=== PATIENT | male | born 1995 | race Caucasian/White ===

== ENCOUNTER 2022-05-22 19:04 | Inpatient (IN) | payer MEDICAID, OTHER ==
--- NOTE | 2022-05-22 19:39 | ED ---
Psych HPI - General Chief Complaint: Psychiatric Symptoms Stated Complaint: Mental Health Time Seen by Provider: 05/22/22 19:19 Source: patient, RN notes reviewed Mode of arrival: ambulatory - History of Present Illness Initial Comments: Patient is a pleasant 26-year-old male presenting to the emergency room with reports of worsening depression ongoing for approximately 1 month with now plans of hurting himself. He denies any specific plan as to how he is going to hurt himself. Anxiety including occasional chest pain and headache but denies any at this time. He is not currently taking any medications for psychiatric conditions. He denies any homicidal thoughts, hallucinations or delusions. He denies any other complaints or concerns at this time including any shortness of breath, abdominal pain, nausea, vomiting, lethargy, altered mental status, weakness, fevers or chills. He has no significant past medical history and does not take any medications on a regular basis. - Related Data Previous Rx's Medication Instructions Recorded FLUoxetine HCL [PROzac] 30 mg PO DAILY 30 Days cap 05/27/22 diphenhydrAMINE [Benadryl] 50 mg PO HS 30 Days cap 05/27/22 Allergies Allergy/AdvReac Type Severity Reaction Status Date / Time No Known Allergies Allergy Verified 05/24/22 20:43 Review of Systems ROS Statement: Those systems with pertinent positive or pertinent negative responses have been documented in the HPI. ROS Other: All systems not noted in ROS Statement are negative. Past Medical History Past Medical History: No Reported History History of Any Multi-Drug Resistant Organisms: None Reported Past Surgical History: No Surgical Hx Reported Past Psychological History: No Psychological Hx Reported Smoking Status: Current every day smoker Past Alcohol Use History: Occasional Past Drug Use History: None Reported - Past Family History familiy Additional Family Medical History / Comment(s): no reported cardiac history General Exam Limitations: no limitations General appearance: alert, in no apparent distress Head exam: Present: atraumatic, normocephalic, normal inspection Eye exam: Present: normal appearance, PERRL, EOMI. Absent: scleral icterus, conjunctival injection, periorbital swelling ENT exam: Present: normal exam, mucous membranes moist Neck exam: Present: normal inspection. Absent: lymphadenopathy Respiratory exam: Present: normal lung sounds bilaterally (Going in). Absent: respiratory distress, wheezes, rales, rhonchi, stridor Cardiovascular Exam: Present: regular rate, normal rhythm, normal heart sounds. Absent: systolic murmur, diastolic murmur, rubs, gallop, clicks GI/Abdominal exam: Present: soft, normal bowel sounds. Absent: distended, tenderness, guarding, rebound, rigid Rectal exam: Present: deferred Extremities exam: Present: normal inspection, full ROM, normal capillary refill. Absent: tenderness, pedal edema, joint swelling, calf tenderness Back exam: Present: normal inspection Neurological exam: Present: alert, oriented X3, CN II-XII intact Psychiatric exam: Present: normal affect, normal mood Skin exam: Present: warm, dry, intact, normal color. Absent: rash Course Vital Signs 05/22/22 05/23/22 05/23/22 19:14 11:17 14:37 Temperature 97 F L Pulse Rate 71 60 68 Pulse Rate [ Right] Respiratory 18 16 16 Rate Blood Pressure 107/67 110/60 120/66 Blood Pressure [Right Arm] O2 Sat by Pulse 96 99 99 Oximetry 05/23/22 05/23/22 05/24/22 21:05 22:38 06:05 Temperature Pulse Rate 80 68 53 L Pulse Rate [ Right] Respiratory 16 16 12 Rate Blood Pressure 118/76 110/66 134/82 Blood Pressure [Right Arm] O2 Sat by Pulse 98 98 100 Oximetry 05/24/22 19:52 Temperature 98.2 F Pulse Rate Pulse Rate [ 51 L Right] Respiratory 18 Rate Blood Pressure Blood Pressure 121/78 [Right Arm] O2 Sat by Pulse 97 Oximetry Medical Decision Making - Medical Decision Making 26-year-old male presenting to the emergency room with depression and anxiety and thoughts of self-harm without any specific suicidal plan. No hallucinations or delusions or homicidal thoughts. No indication for diagnostic imaging or laboratory studies with the exception of breath alcohol test and drug screen Covid screen if needed for psychiatric admission. Will clear medical standpoint for evaluation by EPS. Patient evaluated by EPS and will be admitted voluntarily to mental health unit. No bed availability at this time. Will continue to maintain safety and suicide precautions while in the emergency room. 50 maintained until patch available on psychiatric unit. Will discharge patient for transfer to inpatient psychiatric. Case discussed with Dr. López. - Lab Data Result diagrams: 05/23/22 22:41 05/23/22 22:41 Lab Results 05/22/22 05/23/22 05/23/22 Range/Units 23:10 22:41 22:41 WBC 12.7 H (3.8-10.6) k/uL RBC 4.88 (4.30-5.90) m/uL Hgb 15.0 (13.0-17.5) gm/dL Hct 45.3 (39.0-53.0) % MCV 92.7 (80.0-100.0) fL MCH 30.6 (25.0-35.0) pg MCHC 33.0 (31.0-37.0) g/dL RDW 12.8 (11.5-15.5) % Plt Count 180 (150-450) k/uL MPV 9.4 Neutrophils % 64 % Lymphocytes % 25 % Monocytes % 5 % Eosinophils % 3 % Basophils % 1 % Neutrophils # 8.1 H (1.3-7.7) k/uL Lymphocytes # 3.1 (1.0-4.8) k/uL Monocytes # 0.7 (0-1.0) k/uL Eosinophils # 0.4 (0-0.7) k/uL Basophils # 0.1 (0-0.2) k/uL Sodium (137-145) mmol/L Potassium (3.5-5.1) mmol/L Chloride (98-107) mmol/L Carbon Dioxide (22-30) mmol/L Anion Gap mmol/L BUN (9-20) mg/dL Creatinine (0.66-1.25) mg/dL Est GFR (CKD-EPI)AfAm (>60 ml/min/1.73 sqM) Est GFR (CKD-EPI)NonAf (>60 ml/min/1.73 sqM) Glucose (74-99) mg/dL Estimated Ave Glu mg/dL Hemoglobin A1c (0.0-6.0) % Calcium (8.4-10.2) mg/dL Total Bilirubin (0.2-1.3) mg/dL AST (17-59) U/L ALT (4-49) U/L Alkaline Phosphatase (38-126) U/L Total Protein (6.3-8.2) g/dL Albumin (3.5-5.0) g/dL Triglycerides (0.00-149.00) mg/dL Cholesterol (0.00-200.00) mg/dL LDL Cholesterol, Calc (0.0-131.0) mg/dL VLDL Cholesterol, Calc (5.00-40.00) mg/dL HDL Cholesterol (40.00-60.00) mg/dL Cholesterol/HDL Ratio Ratio TSH (0.465-4.680) mIU/L Urine Color Yellow Urine Appearance Clear (Clear) Urine pH 7.5 (5.0-8.0) Ur Specific [place] 1.022 (1.001-1.035) Urine Protein Negative (Negative) Urine Glucose (UA) Negative (Negative) Urine Ketones Negative (Negative) Urine Blood Negative (Negative) Urine Nitrite Negative (Negative) Urine Bilirubin Negative (Negative) Urine Urobilinogen 2.0 (<2.0) mg/dL Ur Leukocyte Esterase Negative (Negative) Urine Opiates Screen Not Detected (NotDetected) Ur Oxycodone Screen Not Detected (NotDetected) Urine Methadone Screen Not Detected (NotDetected) Ur Propoxyphene Screen Not Detected (NotDetected) Ur Barbiturates Screen Not Detected (NotDetected) U Tricyclic Antidepress Not Detected (NotDetected) Ur Phencyclidine Scrn Not Detected (NotDetected) Ur Amphetamines Screen Detected H (NotDetected) U Methamphetamines Scrn Detected H (NotDetected) U Benzodiazepines Scrn Not Detected (NotDetected) Urine Cocaine Screen Not Detected (NotDetected) U Marijuana (THC) Screen Detected H (NotDetected) Coronavirus (PCR) (Not Detectd) 05/23/22 05/23/22 05/23/22 Range/Units 22:41 22:41 22:41 WBC (3.8-10.6) k/uL RBC (4.30-5.90) m/uL Hgb (13.0-17.5) gm/dL Hct (39.0-53.0) % MCV (80.0-100.0) fL MCH (25.0-35.0) pg MCHC (31.0-37.0) g/dL RDW (11.5-15.5) % Plt Count (150-450) k/uL MPV Neutrophils % % Lymphocytes % % Monocytes % % Eosinophils % % Basophils % % Neutrophils # (1.3-7.7) k/uL Lymphocytes # (1.0-4.8) k/uL Monocytes # (0-1.0) k/uL Eosinophils # (0-0.7) k/uL Basophils # (0-0.2) k/uL Sodium 138 (137-145) mmol/L Potassium 4.3 (3.5-5.1) mmol/L Chloride 106 (98-107) mmol/L Carbon Dioxide 28 (22-30) mmol/L Anion Gap 4 mmol/L BUN 12 (9-20) mg/dL Creatinine 0.93 (0.66-1.25) mg/dL Est GFR (CKD-EPI)AfAm >90 (>60 ml/min/1.73 sqM) Est GFR (CKD-EPI)NonAf >90 (>60 ml/min/1.73 sqM) Glucose 91 (74-99) mg/dL Estimated Ave Glu mg/dL 115 Hemoglobin A1c 5.6 (0.0-6.0) % Calcium 9.3 (8.4-10.2) mg/dL Total Bilirubin 0.4 (0.2-1.3) mg/dL AST 24 (17-59) U/L ALT 19 (4-49) U/L Alkaline Phosphatase 63 (38-126) U/L Total Protein 6.9 (6.3-8.2) g/dL Albumin 4.6 (3.5-5.0) g/dL Triglycerides (0.00-149.00) mg/dL Cholesterol (0.00-200.00) mg/dL LDL Cholesterol, Calc (0.0-131.0) mg/dL VLDL Cholesterol, Calc (5.00-40.00) mg/dL HDL Cholesterol (40.00-60.00) mg/dL Cholesterol/HDL Ratio Ratio TSH (0.465-4.680) mIU/L Urine Color Urine Appearance (Clear) Urine pH (5.0-8.0) Ur Specific [place] (1.001-1.035) Urine Protein (Negative) Urine Glucose (UA) (Negative) Urine Ketones (Negative) Urine Blood (Negative) Urine Nitrite (Negative) Urine Bilirubin (Negative) Urine Urobilinogen (<2.0) mg/dL Ur Leukocyte Esterase (Negative) Urine Opiates Screen (NotDetected) Ur Oxycodone Screen (NotDetected) Urine Methadone Screen (NotDetected) Ur Propoxyphene Screen (NotDetected) Ur Barbiturates Screen (NotDetected) U Tricyclic Antidepress (NotDetected) Ur Phencyclidine Scrn (NotDetected) Ur Amphetamines Screen (NotDetected) U Methamphetamines Scrn (NotDetected) U Benzodiazepines Scrn (NotDetected) Urine Cocaine Screen (NotDetected) U Marijuana (THC) Screen (NotDetected) Coronavirus (PCR) Not Detected (Not Detectd) 05/23/22 Range/Units 22:41 WBC (3.8-10.6) k/uL RBC (4.30-5.90) m/uL Hgb (13.0-17.5) gm/dL Hct (39.0-53.0) % MCV (80.0-100.0) fL MCH (25.0-35.0) pg MCHC (31.0-37.0) g/dL RDW (11.5-15.5) % Plt Count (150-450) k/uL MPV Neutrophils % % Lymphocytes % % Monocytes % % Eosinophils % % Basophils % % Neutrophils # (1.3-7.7) k/uL Lymphocytes # (1.0-4.8) k/uL Monocytes # (0-1.0) k/uL Eosinophils # (0-0.7) k/uL Basophils # (0-0.2) k/uL Sodium (137-145) mmol/L Potassium (3.5-5.1) mmol/L Chloride (98-107) mmol/L Carbon Dioxide (22-30) mmol/L Anion Gap mmol/L BUN (9-20) mg/dL Creatinine (0.66-1.25) mg/dL Est GFR (CKD-EPI)AfAm (>60 ml/min/1.73 sqM) Est GFR (CKD-EPI)NonAf (>60 ml/min/1.73 sqM) Glucose (74-99) mg/dL Estimated Ave Glu mg/dL Hemoglobin A1c (0.0-6.0) % Calcium (8.4-10.2) mg/dL Total Bilirubin (0.2-1.3) mg/dL AST (17-59) U/L ALT (4-49) U/L Alkaline Phosphatase (38-126) U/L Total Protein (6.3-8.2) g/dL Albumin (3.5-5.0) g/dL Triglycerides 145.00 (0.00-149.00) mg/dL Cholesterol 113.00 (0.00-200.00) mg/dL LDL Cholesterol, Calc 44.4 (0.0-131.0) mg/dL VLDL Cholesterol, Calc 29.00 (5.00-40.00) mg/dL HDL Cholesterol 39.60 L (40.00-60.00) mg/dL Cholesterol/HDL Ratio 2.85 Ratio TSH 0.494 (0.465-4.680) mIU/L Urine Color Urine Appearance (Clear) Urine pH (5.0-8.0) Ur Specific [place] (1.001-1.035) Urine Protein (Negative) Urine Glucose (UA) (Negative) Urine Ketones (Negative) Urine Blood (Negative) Urine Nitrite (Negative) Urine Bilirubin (Negative) Urine Urobilinogen (<2.0) mg/dL Ur Leukocyte Esterase (Negative) Urine Opiates Screen (NotDetected) Ur Oxycodone Screen (NotDetected) Urine Methadone Screen (NotDetected) Ur Propoxyphene Screen (NotDetected) Ur Barbiturates Screen (NotDetected) U Tricyclic Antidepress (NotDetected) Ur Phencyclidine Scrn (NotDetected) Ur Amphetamines Screen (NotDetected) U Methamphetamines Scrn (NotDetected) U Benzodiazepines Scrn (NotDetected) Urine Cocaine Screen (NotDetected) U Marijuana (THC) Screen (NotDetected) Coronavirus (PCR) (Not Detectd) Disposition Clinical Impression: Depression Disposition: TRANSFER TO PSYCH HOSP/UNIT Condition: Stable Is patient prescribed a controlled substance at d/c from ED?: No Time of Disposition: 20:05
[2022-05-23 00:21] LABS: Amphetamine Screen,Urine Detected (NotDetected); Barbiturate Screen,Urine Not Detected (NotDetected); Benzodiazepines Screen,Urine Not Detected (NotDetected); Cocaine Screen,Urine Not Detected (NotDetected); Methadone Screen, Urine Not Detected (NotDetected); Opiate Screen,Urine Not Detected (NotDetected); Oxycodone Screen, Urine Not Detected (NotDetected); Phencyclidine Screen,Urine Not Detected (NotDetected); Tricyclic Antidepressant,Urine Not Detected (NotDetected); Urn Cannabinoid Scrn Detected (NotDetected)
[2022-05-23 23:06] LABS: Appearance,Urine Clear (Clear); Basophils # (A) 0.1 k/uL (0-0.2); Basophils % (A) 1 %; Bilirubin,Urine Negative (Negative); Blood,Urine Negative (Negative); Color,Urine Yellow; Eosinophils # (A) 0.4 k/uL (0-0.7); Eosinophils % (A) 3 %; Glucose,Urine (UA) Negative (Negative); HCT 45.3 % (39.0-53.0); Ketones,Urine Negative (Negative); Leukocyte Esterase,Urine Negative (Negative); Lymphocytes # (A) 3.1 k/uL (1.0-4.8); Lymphocytes % (A) 25 %; MCH 30.6 pg (25.0-35.0); MCV 92.7 fL (80.0-100.0); Mean Platelet Volume 9.4; Monocytes # (A) 0.7 k/uL (0-1.0); Monocytes % (A) 5 %; Neutrophils # (A) 8.1 k/uL (1.3-7.7); Neutrophils % (A) 64 %; Nitrite,Urine Negative (Negative); PH, Urine 7.5 (5.0-8.0); Platelet Count 180 k/uL (150-450); Protein,Urine Negative (Negative); RBC 4.88 m/uL (4.30-5.90); RDW 12.8 % (11.5-15.5); Specific Gravity,Urine 1.022 (1.001-1.035); WBC 12.7 k/uL (3.8-10.6)
[2022-05-23 23:16] LABS: ALT 19 U/L (4-49); AST 24 U/L (17-59); African American GFR (CKD) >90 (>60 ml/min/1.73 sqM); Albumin 4.6 g/dL (3.5-5.0); Alkaline Phosphatase 63 U/L (38-126); Anion Gap 4 mmol/L; Blood Urea Nitrogen 12 mg/dL (9-20); Calcium 9.3 mg/dL (8.4-10.2); Carbon Dioxide 28 mmol/L (22-30); Chloride 106 mmol/L (98-107); Glucose 91 mg/dL (74-99); Non-African American GFR(CKD) >90 (>60 ml/min/1.73 sqM); Potassium 4.3 mmol/L (3.5-5.1); Sodium 138 mmol/L (137-145); Total Bilirubin 0.4 mg/dL (0.2-1.3); Total Protein 6.9 g/dL (6.3-8.2)
[2022-05-24] MEDS ORDERED: MAGNESIUM HYDROXIDE 2,400 MG/10 ML CUP PO PRN (20:12)
[2022-05-24] MEDS ORDERED: LORazepam 1 MG TAB PO PRN (20:12)
[2022-05-24] MEDS ORDERED: ACETAMINOPHEN TAB 325 MG TAB PO PRN (20:12)
[2022-05-24] MEDS ORDERED: MAG HYDROX/AL HYDROX/SIMETH 30 ML CUP PO PRN (20:12)
[2022-05-24] MEDS ORDERED: LORazepam 1 MG/0.5 ML VIAL IM PRN (20:14)
--- NOTE | 2022-05-25 04:07 | P.MDCNMH ---
History of Present Illness H&P Date: 05/25/22 Chief Complaint: suicidal ideation 26 year old male with no significant past medical history patient comes in due to feeling depressed and suicidal ideation he denies any URI symptoms, chest pain trouble breathing, nausea or vomiting , abd pain , changes in bowel or urinary habits. denies any focal neuro deficits e admits to tobacco smoking, using meth , but denies daily drinking Review of Systems Pertinent positives as noted in HPI. All other systems were reviewed and are negative Past Medical History Past Medical History: No Reported History History of Any Multi-Drug Resistant Organisms: None Reported Past Surgical History: No Surgical Hx Reported Past Psychological History: No Psychological Hx Reported Smoking Status: Current every day smoker Past Alcohol Use History: Occasional Past Drug Use History: None Reported - Past Family History familiy Additional Family Medical History / Comment(s): no reported cardiac history Medications and Allergies Home Medications Medication Instructions Recorded Confirmed Type No Known Home Medications 05/23/22 05/24/22 History Allergies Allergy/AdvReac Type Severity Reaction Status Date / Time No Known Allergies Allergy Verified 05/24/22 20:43 Physical Exam Vitals: Vital Signs Temp Pulse Pulse Resp BP BP Pulse Ox 05/24/22 20:33 97.6 F 60 14 134/81 100 05/24/22 06:05 53 L 12 134/82 100 Intake and Output 05/24/22 05/24/22 05/25/22 14:59 22:59 06:59 Other: Weight 86.183 kg Constitutional: No acute distress, conversant, pleasant Eyes: Anicteric sclerae, moist conjunctiva, Pupils equal round reactive to light ENMT: NC/AT Oropharynx clear, no erythema, or exudates Neck: Supple, no masses, or JVD No carotid bruits No thyromegaly Lungs: Clear to auscultation Clear to percussion Normal respiratory effort, no accessory muscle use Cardiovascular: Heart regular in rate and rhythm, No murmurs, gallops, or rubs No peripheral edema Abdominal: Soft Nontender, no guarding, rebound or rigidity Abdomen moving with respiration Normoactive bowel sounds No hepatomegaly, No splenomegaly No palpable mass No abdominal wall hernia noted Skin: Normal temperature, tone, texture, turgor No induration No subcutaneous nodules No rash, lesions No ulcers Extremities: No digital cyanosis No clubbing Pedal pulses intact and symmetrical Radial pulses intact and symmetrical No calf tenderness Psychiatric: Alert and oriented to person, place and time Neuro Muscles Strength 5/5 in all 4 extremities Sensation to light touch grossly present throughout Cranial nerves II-XII grossly intact Lymphatics: no palpable cervical or supraclavicular lymph nodes Cranial Nerve Examination - Cranial Nerves Cranial Nerve II- Optic: Intact Cranial Nerve III- Oculomotor: Intact Cranial Nerve IV- Trochlear: Intact Cranial Nerve V- Trigeminal: Intact Cranial Nerve - Abducens: Intact Cranial Nerve VII- Facial: Intact Cranial Nerve VIII- Auditory: Intact Cranial Nerve IX- Glossopharyngeal: Intact Cranial Nerve X- Vagus: Intact Cranial Nerve XI- Accessory: Intact Cranial Nerve XII- Hypoglossal: Intact Results CBC & Chem 7: 05/23/22 22:41 05/23/22 22:41 Assessment and Plan Assessment: depression and suicidal ideation management per psych tobacco smoking polysubstance abuse counseled to quit nicotine replacement therapy offered follow up labs thank you for your consult
[2022-05-25 09:56] LABS: Chol/HDL Ratio 2.85 Ratio; LDL Cholesterol,Calculated 44.4 mg/dL (0.0-131.0)
[2022-05-25] MEDS ORDERED: FLUoxetine HCL 20 MG CAP PO STA (10:27)
--- NOTE | 2022-05-25 11:37 | P.HP ---
Psychiatric H&P - . H&P Date: 05/25/22 History & Physical: Allergies Allergy/AdvReac Type Severity Reaction Status Date / Time No Known Allergies Allergy Verified 05/24/22 20:43 Vital Signs Temp 97.6 F 05/24/22 20:33 Pulse 60 05/24/22 20:33 Resp 14 05/24/22 20:33 BP 134/81 05/24/22 20:33 Pulse Ox 100 05/24/22 20:33 FiO2 Intake & Output 05/24/22 05/25/22 05/25/22 18:59 06:59 18:59 Weight 86.183 kg Laboratory Last Values WBC 12.7 k/uL (3.8-10.6) H 05/23/22 22:41 RBC 4.88 m/uL (4.30-5.90) 05/23/22 22:41 Hgb 15.0 gm/dL (13.0-17.5) 05/23/22 22:41 Hct 45.3 % (39.0-53.0) 05/23/22 22:41 MCV 92.7 fL (80.0-100.0) 05/23/22 22:41 MCH 30.6 pg (25.0-35.0) 05/23/22 22:41 MCHC 33.0 g/dL (31.0-37.0) 05/23/22 22:41 RDW 12.8 % (11.5-15.5) 05/23/22 22:41 Plt Count 180 k/uL (150-450) 05/23/22 22:41 MPV 9.4 05/23/22 22:41 Neutrophils % 64 % 05/23/22 22:41 Lymphocytes % 25 % 05/23/22 22:41 Monocytes % 5 % 05/23/22 22:41 Eosinophils % 3 % 05/23/22 22:41 Basophils % 1 % 05/23/22 22:41 Neutrophils # 8.1 k/uL (1.3-7.7) H 05/23/22 22:41 Lymphocytes # 3.1 k/uL (1.0-4.8) 05/23/22 22:41 Monocytes # 0.7 k/uL (0-1.0) 05/23/22 22:41 Eosinophils # 0.4 k/uL (0-0.7) 05/23/22 22:41 Basophils # 0.1 k/uL (0-0.2) 05/23/22 22:41 Sodium 138 mmol/L (137-145) 05/23/22 22:41 Potassium 4.3 mmol/L (3.5-5.1) 05/23/22 22:41 Chloride 106 mmol/L (98-107) 05/23/22 22:41 Carbon Dioxide 28 mmol/L (22-30) 05/23/22 22:41 Anion Gap 4 mmol/L 05/23/22 22:41 BUN 12 mg/dL (9-20) 05/23/22 22:41 Creatinine 0.93 mg/dL (0.66-1.25) 05/23/22 22:41 Est GFR (CKD-EPI)AfAm >90 (>60 ml/min/1.73 sqM) 05/23/22 22:41 Est GFR (CKD-EPI)NonAf >90 (>60 ml/min/1.73 sqM) 05/23/22 22:41 Glucose 91 mg/dL (74-99) 05/23/22 22:[address] Glu mg/dL 115 05/23/22 22:41 Hemoglobin A1c 5.6 % (0.0-6.0) 05/23/22 22:41 Calcium 9.3 mg/dL (8.4-10.2) 05/23/22 22:41 Total Bilirubin 0.4 mg/dL (0.2-1.3) 05/23/22 22:41 AST 24 U/L (17-59) 05/23/22 22:41 ALT 19 U/L (4-49) 05/23/22 22:41 Alkaline Phosphatase 63 U/L (38-126) 05/23/22 22:41 Total Protein 6.9 g/dL (6.3-8.2) 05/23/22 22:41 Albumin 4.6 g/dL (3.5-5.0) 05/23/22 22:41 Triglycerides 145.00 mg/dL (0.00-149.00) 05/23/22 22:41 Cholesterol 113.00 mg/dL (0.00-200.00) 05/23/22 22:41 LDL Cholesterol, Calc 44.4 mg/dL (0.0-131.0) 05/23/22 22: VLDL Cholesterol, Calc 29.00 mg/dL (5.00-40.00) 05/23/22 22: HDL Cholesterol 39.60 mg/dL (40.00-60.00) L 05/23/22 22:41 Cholesterol/HDL Ratio 2.85 Ratio 05/23/22 22: TSH 0.494 mIU/L (0.465-4.680) 05/23/22 22:41 Urine Color Yellow 05/23/22 22:41 Urine Appearance Clear (Clear) 05/23/22 22:41 Urine pH 7.5 (5.0-8.0) 05/23/22 22:41 Ur Specific [place] 1.022 (1.001-1.035) 05/23/22 22:41 Urine Protein Negative (Negative) 05/23/22 22:41 Urine Glucose (UA) Negative (Negative) 05/23/22 22:41 Urine Ketones Negative (Negative) 05/23/22 22:41 Urine Blood Negative (Negative) 05/23/22 22:41 Urine Nitrite Negative (Negative) 05/23/22 22:41 Urine Bilirubin Negative (Negative) 05/23/22 22:41 Urine Urobilinogen 2.0 mg/dL (<2.0) 05/23/22 22:41 Ur Leukocyte Esterase Negative (Negative) 05/23/22 22:41 Urine Opiates Screen Not Detected (NotDetected) 05/22/22 23:10 Ur Oxycodone Screen Not Detected (NotDetected) 05/22/22 23:10 Urine Methadone Screen Not Detected (NotDetected) 05/22/22 23:10 Ur Propoxyphene Screen Not Detected (NotDetected) 05/22/22 23:10 Ur Barbiturates Screen Not Detected (NotDetected) 05/22/22 23:10 U Tricyclic Antidepress Not Detected (NotDetected) 05/22/22 23:10 Ur Phencyclidine Scrn Not Detected (NotDetected) 05/22/22 23:10 Ur Amphetamines Screen Detected (NotDetected) H 05/22/22 23:10 U Methamphetamines Scrn Detected (NotDetected) H 05/22/22 23:10 U Benzodiazepines Scrn Not Detected (NotDetected) 05/22/22 23:10 Urine Cocaine Screen Not Detected (NotDetected) 05/22/22 23:10 U Marijuana (THC) Screen Detected (NotDetected) H 05/22/22 23:10 Coronavirus (PCR) Not Detected (Not Detectd) 05/23/22 22:41 05/25/22 11:36 IDENTIFYING DATA: Patient is a single, unemployed, 26-year-old male with no significant psychiatric history who presents to the hospital for depression and suicidal ideation. HPI: Patient presented to the hospital on 05/22/2022, brought into the hospital on his own volition for psychiatric evaluation for increased depression and suicidal ideation. The patient reports that he has been feeling increasingly depressed over the past 6-8 months however over the past week his depression was significantly worse. He reports that a few days prior to his presentation in [facility], the patient overdosed on a random assortment of pills. He reports that he was intoxicated at the time. He states that he was convinced by the mother of his daughter to seek psychiatric care. Upon evaluation on the psychiatric unit, the patient reports that he has been feeling very depressed. He endorses significant symptoms of depression including decreased sleep, anhedonia, hopelessness, helplessness, and suicidal ideation. In regards to other mood symptoms, the patient is denying any significant history of bipolar symptoms. He reports no history of increased goal-directed activity, grandiosity, or periods of excessive energy. Patient also denies any significant history of psychosis. He reports no auditory hallucinations, visual hallucinations, paranoia, or any delusions. In regards to acute stressors, the patient reports that he recently moved back from [place]. He is currently unemployed and has been staying with his mother for the past week. He identifies this as a stressor. He also reports that he's been feeling increasingly lonely and wishes he could spend more time with his daughter Jennifer. PAST PSYCHIATRIC HISTORY: Patient states that he has never had any psychiatric diagnosis or care in the past. Patient denies being on any psychiatric medications. Patient denies any previous psychiatric hospitalizations. Patient denies any psychiatric outpatient follow-up. And has one prior attempt at suicide a few days days prior to this admission. PMH: Past Medical History: No Reported History History of Any Multi-Drug Resistant Organisms: None Reported Past Surgical History: No Surgical Hx Reported Past Psychological History: No Psychological Hx Reported Smoking Status: Current every day smoker Past Alcohol Use History: Occasional Past Drug Use History: None Reported ALLERGIES: NO KNOWN DRUG ALLERGIES CHEMICAL DEPENDENCY HISTORY:. Patient reports he smokes one pack per day of tobacco. He reports that he uses marijuana every day. He reports that he drinks "on occasion." He does report a history of methamphetamine and cocaine abuse. He states that he last used methamphetamine a few days prior to this admission. He also reports that he last used cocaine years ago. He states that he uses methamphetamines a few times per year. FAMILY PSYCHIATRIC/SUBSTANCE USE HISTORY: No reported family history of psychiatric illness. He does report that his mother and father both engaged in heavy drug and alcohol use. No reported family history of suicides. SOCIAL HISTORY: Patient was born and raised in [place], [place]. He is single, never , but has a 6-year-old daughter. He has his GED. He reports no moravian affiliation. He denies any history of legal issues. 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 MENTAL STATUS EXAM: General Appearance: Patient appears to be stated age is alert, directable, and attempts to cooperate. Patient appears to have slightly disheveled hygiene and grooming. Behavior: Patient is seated without any agitated behavior. Tearful. Speech: Patient's speech is fluent and nonpressured. Nonspontaneous and monotone. Mood/Affect: Patient reports their mood is depressed, affect is congruent and tearful. Blunted. Suicidality/Homicidality: Patient is currently denying any suicidal or homicidal ideation. Perceptions: Patient denies any visual hallucinations and denies any auditory hallucinations Though content/process: There is no evidence of any delusional thought content and thought process is linear and goal-directed. Memory and concentration: AOX3, grossly intact for the purposes of this session. Can spell "WORLD" backwards Judgment and insight: Fair STRENGTHS/WEAKNESSES: strength is that patient is resilient. Weakness is that patient engages in significant substance abuse. INTELLECT: average IMPRESSIONS: Major depressive disorder, severe, without psychotic features Tobacco use disorder Cannabis use disorder Stimulant use disorder PLAN: -Patient is admitted under voluntary status to [facility] for stabilization of psychiatric symptoms and safety. Patient signed adult voluntary form and medication consent and is placed in patient's chart. -Medications : Will start patient on Prozac 20 mg by mouth daily for depression/anxiety -Ativan and Haldol PRN for agitation/aggression -Patient was counselled on substance abuse and desired to cut back on use -Patient was informed of the risks, benefits and side effects of the medication and patient verbally consented to taking the medications. Patient signed med consent form and was placed in chart. -Internal Medicine consult to perform medical evaluation and physical. -NRT - nicotine patch -SW on board for discharge planning. Encourage patient to participate in groups to work on coping skills. 05/25/22 11:36
[2022-05-25] MEDS: NICOTINE 14MG/24HR PATCH TRANSDERM SCH (19:08)
[2022-05-25] MEDS: diphenhydrAMINE 50 MG CAP PO SCH (21:43)
[2022-05-26 06:44] VITALS: PULSE 54
[2022-05-26] MEDS: NICOTINE 14MG/24HR PATCH TRANSDERM SCH (08:46)
[2022-05-26] MEDS: FLUoxetine HCL 10 MG CAP PO SCH (08:46)
--- NOTE | 2022-05-26 11:10 | P.PN ---
Progress Note - Text Progress Note Date: 05/26/22 Interval History: Patient was seen wandering the hallways and was directable and agreeable to speak with typewriter assembler in the office. Currently, the patient reports that he is feeling better. He reports that he was able to sleep well and was able to eat this morning. He denies any suicidal or homicidal ideation, intention, and/or plan. He is denying any auditory or visual hallucinations. He reports no paranoia or other delusions. He has been adherent with his medication is not endorsing any significant side effects. He states that he has been contemplating how to have more time with his daughter. He is future and goal oriented. Mental Status Exam: General Appearance: Patient appears to be stated age is alert, directable, and cooperative. Behavior: Patient is calmly seated without any agitated behavior. Speech: Patient's speech is fluent and nonpressured. Mood/Affect: Mood is improving mildly, affect is congruent and constricted. Suicidality/Homicidality: Patient denies having any suicidal or homicidal ideation intent or plan. Perceptions: Patient denies any visual hallucinations and denies any auditory hallucinations Though content/process: There is no evidence of any delusional thought content and thought process is linear and goal-directed. Memory and concentration: AOX3, grossly intact for the purposes of this session Judgment and insight: Improving mildly Vital Signs Temp 97.4 F L 05/26/22 06:43 Pulse 54 L 05/26/22 06:43 Resp 15 05/26/22 06:43 BP 137/70 05/26/22 06:43 Pulse Ox 100 05/24/22 20:33 FiO2 Assessment Major depressive disorder, severe, without psychotic features Tobacco use disorder Cannabis use disorder Stimulant use disorder Plan: -Patient continues to meet criteria for inpatient psychiatric admission for symptom stabilization and safety. Patient has signed adult voluntary form and medication consent and was placed in patient's chart. -Medications: Increase Prozac to 30 mg by mouth daily for depression/anxiety Benadryl 50 mg by mouth at bedtime for insomnia -When necessary Ativan and Haldol for agitation/aggression. -NRT - nicotine patch -SW on board for discharge planning. Encouraged the patient to participate in milieu.
[2022-05-26] MEDS: diphenhydrAMINE 50 MG CAP PO SCH (20:33)
[2022-05-27 06:31] VITALS: BP 111/69; RESP 16; TEMP 97.9
[2022-05-27] MEDS: NICOTINE 14MG/24HR PATCH TRANSDERM SCH (08:37)
[2022-05-27] MEDS: FLUoxetine HCL 10 MG CAP PO SCH (08:37)
--- NOTE | 2022-05-27 11:46 | P.DS ---
Providers Date of admission: 05/24/22 19:52 Expected date of discharge: 05/27/22 Attending physician: Jose Herrera MD Consults: 05/24/22 20:12 Consult Physician Routine Consulting Provider: Tish Barba Consult Reason/Comments: H&P and medical Do you want consulting provider notified?: Yes Primary care physician: Stated None - Discharge Diagnosis(es) (1) Major depressive disorder with psychotic features Current Visit: Yes Status: Acute Priority: High (2) Tobacco use disorder Current Visit: Yes Status: Chronic Priority: Medium (3) Cannabis use disorder Current Visit: Yes Status: Chronic Priority: Medium (4) Stimulant use disorder Current Visit: Yes Status: Chronic Priority: Medium Hospital Course: Admission HPI: Patient is a single, unemployed, 26-year-old male with no significant psychiatric history who presents to the hospital for depression and suicidal ideation. Patient presented to the hospital on 05/22/2022, brought into the hospital on his own volition for psychiatric evaluation for increased depression and suicidal ideation. The patient reports that he has been feeling increasingly depressed over the past 6-8 months however over the past week his depression was significantly worse. He reports that a few days prior to his presentation in the hospital, the patient overdosed on a random assortment of pills. He reports that he was intoxicated at the time. He states that he was convinced by the mother of his daughter to seek psychiatric care. Upon evaluation on the psychiatric unit, the patient reports that he has been feeling very depressed. He endorses significant symptoms of depression including decreased sleep, anhedonia, hopelessness, helplessness, and suicidal ideation. In regards to other mood symptoms, the patient is denying any significant history of bipolar symptoms. He reports no history of increased goal-directed activity, grandiosity, or periods of excessive energy. Patient also denies any significant history of psychosis. He reports no auditory hallucinations, visual hallucinations, paranoia, or any delusions. In regards to acute stressors, the patient reports that he recently moved back from [place]. He is currently unemployed and has been staying with his mother for the past week. He identifies this as a stressor. He also reports that he's been feeling increasingly lonely and wishes he could spend more time with his daughter Jennifer. Patient states that he has never had any psychiatric diagnosis or care in the past. Patient denies being on any psychiatric medications. Patient denies any previous psychiatric hospitalizations. Patient denies any psychiatric outpatient follow-up. And has one prior attempt at suicide a few days days prior to this admission. Hospital course: Upon admission to the unit patient was initially worsened depression and suicidal ideation. Patient was however directable and agreeable to commence treatment. Patient got along well with other patients on the unit and followed unit protocol. Patient was compliant with the medications and denied any side effects throughout hospital course. Patient was started on Prozac for m anagement of depression and anxiety. Patient spoke of his stressors and engaged in therapy both group and individual. Patient was also seen by medical team for history and physical exam. The patient's Prozac was titrated to a final dose of 30 mg. Benadryl was added to his regimen for insomnia. Throughout the course of the hospitalization patient gradually improved with regards to mood, anxiety, sleep and became future oriented with improved insight and judgment. On the day of discharge patient denied any suicidal or homicidal ideations intent or plan denied any auditory or visual hallucinations. Patient endorsed wanting to live for his health and family. The patient denied any access to guns or weapons. Patient denied any paranoia and did not endorse any delusions. Patient does hav e a significant history of substance abuse however was counseled on abstaining from all substances including alcohol, tobacco, and marijuana. Patient was offered however declined inpatient substance-abuse rehab. Patient was also counseled on the medications and need for regular compliance and was encouraged to follow-up with their outpatient appointment for mental health and also for primary care. Prior to discharge a family meeting will be arranged by social service director to answer any questions and ensure safety upon discharge. Mental status exam: General Appearance: Patient appears to be stated age is alert, pleasant, and cooperative. Patient is in no acute distress and has fair hygiene and grooming Behavior: Patient is calmly seated without any agitated behavior. Speech: Patient's speech is fluent and nonpressured. Mood/Affect: Patient reports their mood is "much better", affect is congruent and euthymic. Suicidality/Homicidality: Patient denies having any suicidal or homicidal idea tion intent or plan. Perceptions: Patient denies any auditory or visual hallucinations. Though content/process: There is no evidence of any delusional thought content and thought process is linear and goal-directed. more future oriented Memory and concentration: AOX3, grossly intact for the purposes of this session. Can spell "WORLD" backwards correctly. Judgment and insight: Improved with guarded prognosis Impression: Major depressive disorder, severe, without psychotic features Tobacco use disorder Cannabis use disorder Stimulant use disorder Plan: -Continue with discharge today as patient has improved and stabilized psychiatrically and is not currently an imminent threat to himself and/or others. Patient remain an elevated risk due to his history of polysubstance abuse. -Continue medications: Prozac 30 mg by mouth daily for depression/anxiety Benadryl 50 mg by mouth at bedtime for insomnia -Patient was counseled on the need for medication compliance and appropriate follow-up at mental health and also primary care for medical issues. Patient verbalized understanding and agreed. -Social work to arrange for and conduct family meeting to ensure safety upon discharge and answer any questions/concerns. Social work also to arrange for patients follow up appointments with [facility] for psychiatric care along with follow up with primary care provider. -Patient counseled on abstaining from recreational drugs and marijuana and alcohol. Was informed/educated on the adverse effects on their physical and mental health. Patient verbally agreed and understood. Patient was offered sub stance abuse treatment however declined at this time. -Patient was instructed to return to the hospital or seek immediate medical care if their psychiatric or medical symptoms do worsen or reoccur. -Psychoeducation and supportive therapy provided to patient. Risks and benefits of pharmacological treatment versus the risks and benefits of nontreatment weight and discussed. Informed consent discussion held. Common side effects of psychotropics discussed such as, but not limited to headache, GI disturbance, sexual dysfunction, movement disorders, sedation, and orthostatic hypotension. Life threatening and blackbox warnings of prescribed medications also discussed. Potential risks of operating a vehicle or heavy machinery discussed with patient at length. Advised on importance of compliance and a reliable and responsible manner. Patient advised to review FDA consumer labeling of all medications prior to taking. Patient verbalized understanding of potential risks, and agrees with current treatment plan. Patient advised to medically contact physician/emergency personnel if any acute changes in condition occur. Vital Signs Temp 97.9 F 05/27/22 06:00 Pulse 54 L 05/27/22 06:00 Resp 16 05/27/22 06:00 BP 111/69 05/27/22 06:00 Pulse Ox 96 05/27/22 06:00 FiO2 Laboratory Results WBC 12.7 k/uL (3.8-10.6) H 05/23/22 22:41 RBC 4.88 m/uL (4.30-5.90) 05/23/22 22:41 Hgb 15.0 gm/dL (13.0-17.5) 05/23/22 22:41 Hct 45.3 % (39.0-53.0) 05/23/22 22:41 MCV 92.7 fL (80.0-100.0) 05/23/22 22:41 MCH 30.6 pg (25.0-35.0) 05/23/22 22:41 MCHC 33.0 g/dL (31.0-37.0) 05/23/22 22:41 RDW 12.8 % (11.5-15.5) 05/23/22 22:41 Plt Count 180 k/uL (150-450) 05/23/22 22:41 MPV 9.4 05/23/22 22:41 Neutrophils % 64 % 05/23/22 22:41 Lymphocytes % 25 % 05/23/22 22:41 Monocytes % 5 % 05/23/22 22:41 Eosinophils % 3 % 05/23/22 22:41 Basophils % 1 % 05/23/22 22:41 Neutrophils # 8.1 k/uL (1.3-7.7) H 05/23/22 22:41 Lymphocytes # 3.1 k/uL (1.0-4.8) 05/23/22 22:41 Monocytes # 0.7 k/uL (0-1.0) 05/23/22 22:41 Eosinophils # 0.4 k/uL (0-0.7) 05/23/22 22:41 Basophils # 0.1 k/uL (0-0.2) 05/23/22 22:41 Sodium 138 mmol/L (137-145) 05/23/22 22:41 Potassium 4.3 mmol/L (3.5-5.1) 05/23/22 22:41 Chloride 106 mmol/L (98-107) 05/23/22 22:41 Carbon Dioxide 28 mmol/L (22-30) 05/23/22 22:41 Anion Gap 4 mmol/L 05/23/22 22:41 BUN 12 mg/dL (9-20) 05/23/22 22:41 Creatinine 0.93 mg/dL (0.66-1.25) 05/23/22 22:41 Est GFR (CKD-EPI)AfAm >90 (>60 ml/min/1.73 sqM) 05/23/22 22:41 Est GFR (CKD-EPI)NonAf >90 (>60 ml/min/1.73 sqM) 05/23/22 22:41 Glucose 91 mg/dL (74-99) 05/23/22 22:[address] Glu mg/dL 115 05/23/22 22:41 Hemoglobin A1c 5.6 % (0.0-6.0) 05/23/22 22:41 Calcium 9.3 mg/dL (8.4-10.2) 05/23/22 22:41 Total Bilirubin 0.4 mg/dL (0.2-1.3) 05/23/22 22:41 AST 24 U/L (17-59) 05/23/22 22:41 ALT 19 U/L (4-49) 05/23/22 22:41 Alkaline Phosphatase 63 U/L (38-126) 05/23/22 22:41 Total Protein 6.9 g/dL (6.3-8.2) 05/23/22 22:41 Albumin 4.6 g/dL (3.5-5.0) 05/23/22 22:41 Triglycerides 145.00 mg/dL (0.00-149.00) 05/23/22 22:41 Cholesterol 113.00 mg/dL (0.00-200.00) 05/23/22 22:41 LDL Cholesterol, Calc 44.4 mg/dL (0.0-131.0) 05/23/22 22:41 VLDL Cholesterol, Calc 29.00 mg/dL (5.00-40.00) 05/23/22 22:41 HDL Cholesterol 39.60 mg/dL (40.00-60.00) L 05/23/22 22:41 Cholesterol/HDL Ratio 2.85 Ratio 05/23/22 22:41 TSH 0.494 mIU/L (0.465-4.680) 05/23/22 22:41 Urine Color Yellow 05/23/22 22:41 Urine Appearance Clear (Clear) 05/23/22 22:41 Urine pH 7.5 (5.0-8.0) 05/23/22 22:41 Ur Specific [place] 1.022 (1.001-1.035) 05/23/22 22:41 Urine Protein Negative (Negative) 05/23/22 22:41 Urine Glucose (UA) Negative (Negative) 05/23/22 22:41 Urine Ketones Negative (Negative) 05/23/22 22:41 Urine Blood Negative (Negative) 05/23/22 22:41 Urine Nitrite Negative (Negative) 05/23/22 22:41 Urine Bilirubin Negative (Negative) 05/23/22 22:41 Urine Urobilinogen 2.0 mg/dL (<2.0) 05/23/22 22:41 Ur Leukocyte Esterase Negative (Negative) 05/23/22 22:41 Urine Opiates Screen Not Detected (NotDetected) 05/22/22 23:10 Ur Oxycodone Screen Not Detected (NotDetected) 05/22/22 23:10 Urine Methadone Screen Not Detected (NotDetected) 05/22/22 23:10 Ur Propoxyphene Screen Not Detected (NotDetected) 05/22/22 23:10 Ur Barbiturates Screen Not Detected (NotDetected) 05/22/22 23:10 U Tricyclic Antidepress Not Detected (NotDetected) 05/22/22 23:10 Ur Phencyclidine Scrn Not Detected (NotDetected) 05/22/22 23:10 Ur Amphetamines Screen Detected (NotDetected) H 05/22/22 23:10 U Methamphetamines Scrn Detected (NotDetected) H 05/22/22 23:10 U Benzodiazepines Scrn Not Detected (NotDetected) 05/22/22 23:10 Urine Cocaine Screen Not Detected (NotDetected) 05/22/22 23:10 U Marijuana (THC) Screen Detected (NotDetected) H 05/22/22 23:10 Coronavirus (PCR) Not Detected (Not Detectd) 05/23/22 22:41 Allergies Allergy/AdvReac Type Severity Reaction Status Date / Time No Known Allergies Allergy Verified 05/24/22 20:43 Patient Condition at Discharge: Stable Plan - Discharge Summary Discharge Rx Participant: No New Discharge Prescriptions: New diphenhydrAMINE [Benadryl] 50 mg PO HS 30 Days cap FLUoxetine HCL [PROzac] 30 mg PO DAILY 30 Days cap Discharge Medication List FLUoxetine HCL [PROzac] 30 mg PO DAILY 30 Days cap 05/27/22 [Rx] diphenhydrAMINE [Benadryl] 50 mg PO HS 30 Days cap 05/27/22 [Rx] Follow up Appointment(s)/Referral(s): [facility] [Outside] - 06/02/22 9:00 am (with intake ) None,Stated [Primary Care Provider] - 1-2 days Patient Instructions/Handouts: Depression (DC) Activity/Diet/Wound Care/Special Instructions: Avoid the use of street drugs and alcohol. Take all prescriptions as prescribed. When you are in need of refills on your medications, please contact your medical provider and/or outpatient psychiatrist to have this done. Please go to scheduled outpatient appointment for aftercare treatment. If symptoms return or become worse, call the crisis line at and/or go to the nearest emergency room for evaluation. Discharge Disposition: HOME SELF-CARE
== END 2022-05-27 12:10 | disposition home or self-care (01) | DRG 885 ==
LOC: EC 19:04 → 3MHU 05-24 19:52
PROVIDERS: ADMIT Psychiatry & Neurology Psychiatry; ATTEND Psychiatry & Neurology Psychiatry
DX: F32.3 Major depressive disorder, single episode, severe with psychotic features (principal); F15.10 Other stimulant abuse, uncomplicated; F14.11 Cocaine abuse, in remission; F15.11 Other stimulant abuse, in remission; Z20.822 Contact with and (suspected) exposure to COVID-19; Z28.310 Unvaccinated for COVID-19; F41.9 Anxiety disorder, unspecified; F12.10 Cannabis abuse, uncomplicated; G47.00 Insomnia, unspecified; F17.210 Nicotine dependence, cigarettes, uncomplicated; Z71.6 Tobacco abuse counseling; Z56.0 Unemployment, unspecified; Z71.41 Alcohol abuse counseling and surveillance of alcoholic; Z71.51 Drug abuse counseling and surveillance of drug abuser
CPT/HCPCS: 36415; 80053; 80061; 80306; 81003; 82075; 83036; 84443; 85025; 87635; 99285